=== PATIENT | female | born 2000 | race African-American/Black ===

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

== ENCOUNTER 2018-05-13 06:20 | Outpatient (CLI) | payer OTHER ==
--- NOTE | 2018-05-13 10:06 | Non Stress Test Report ---
Non Stress Test Datetime Report Generated by CPN: 05/13/2018 10:06 INDICATION Indication for Study: Other Indication for Study (NST) Other: LABOR CHECK MONITORING Monitor Explained: Monitor Explained; Test Explained; Patient Verbalized Understanding Time on Monitor: 05/13/2018 06:42 Time off Monitor: 05/13/2018 07:48 NST Duration: 66 NST INTERVENTIONS NST Interventions: PO Hydration; Reposition Patient Physician Notified NST: Dr Alexandro BABY A: [id number] BABY A Movement : Present Contraction Frequency : IRREG WITH IRRITABILITY FHR Baseline : 135 Accelerations : 15X15 Decelerations : None Variability : Moderate 6-25bpm NST Review: Meets Criteria for Reactive NST NST Review and Verified By : D Bellavance RN NST Results: Reactive NST REPORT Report Trigger: Send Report
== END 2018-05-13 09:50 | disposition home or self-care (01) ==
LOC: LC 06:20
PROVIDERS: ATTEND Student in an Organized Health Care Education/Training Program
PROC: 4A1HXCZ Monitoring of Products of Conception, Cardiac Rate, External Approach (ICD-10-PCS; principal; 2018-05-13)
DX: O47.1 False labor at or after 37 completed weeks of gestation (principal); Z3A.39 39 weeks gestation of pregnancy

== ENCOUNTER 2018-05-20 16:00 | Outpatient (CLI) | payer OTHER ==
[2018-05-20 16:41] LABS: AMNISURE (ROM) NEGATIVE (NEGATIVE)
--- NOTE | 2018-05-20 17:06 | Non Stress Test Report ---
Non Stress Test Datetime Report Generated by CPN: 05/20/2018 17:06 DEMOGRAPHIC Test Number: 1 EGA NST: 40.1 INDICATION Indication for Study: Ordered by Provider Indication for Study (NST) Other: LC MONITORING Monitor Explained: Monitor Explained; Test Explained; Patient Verbalized Understanding Time on Monitor: 05/20/2018 16:24 Time off Monitor: 05/20/2018 17:05 NST Duration: 41 NST INTERVENTIONS NST Interventions: PO Hydration Physician Notified NST: Alexandro BABY A: [id number] BABY A Movement : Present Contraction Frequency : Irregular FHR Baseline : 135 Accelerations : 15X15 Decelerations : None Variability : Moderate 6-25bpm NST Review: Meets Criteria for Reactive NST NST Review and Verified By : D Bellavance RN NST Results: Reactive NST REPORT Report Trigger: Send Report
[2018-05-20 17:39] LABS: APPEARANCE,URINE CLEAR; BILIRUBIN,URINE NEGATIVE (NEGATIVE); COLOR,URINE STRAW; GLUCOSE, URINE NEGATIVE (NEGATIVE); KETONES,URINE NEGATIVE (NEGATIVE); LEUKOCYTE ESTERASE,URINE NEGATIVE (NEGATIVE); NITRITE,URINE NEGATIVE (NEGATIVE); PROTEIN,URINE NEGATIVE (NEGATIVE); URINE SPECIFIC GRAVITY 1.003; UROBILINOGEN,URINE NEGATIVE mg/dL (<2.0)
[2018-05-20 17:57] LABS: URINE AMPHETAMINES SCREEN NEGATIVE; URINE BARBITURATES SCREEN NEGATIVE; URINE BENZODIAZEPINES SCREEN NEGATIVE; URINE COCAINE SCREEN NEGATIVE; URINE MARIJUANA (THC) SCREEN NEGATIVE; URINE METHADONE SCREEN NEGATIVE; URINE PHENCYCLIDINE SCREEN NEGATIVE
== END 2018-05-20 17:25 | disposition home or self-care (01) ==
LOC: LC 16:00
PROVIDERS: ATTEND Obstetrics & Gynecology
PROC: 4A1HXCZ Monitoring of Products of Conception, Cardiac Rate, External Approach (ICD-10-PCS; principal; 2018-05-20)
DX: O48.0 Post-term pregnancy (principal); Z3A.40 40 weeks gestation of pregnancy
CPT/HCPCS: 59025; 80307; 81005; 84112

== ENCOUNTER 2018-05-22 16:50 | Outpatient (CLI) | payer OTHER ==
--- NOTE | 2018-05-22 21:54 | RADIOLOGY REPORT (SQ) ---
EXAM DESCRIPTION: U/S PROFILE W/O STRESS COMPLETED DATE/TIME: 05/22/2018 8:14 pm REASON FOR STUDY: possible heart rate decel in office, 40+3 COMPARISON: None. TECHNIQUE: Limited calhoun-scale realtime and static images of the fetus to measure specified parameter s. LIMITATIONS: None. FINDINGS: HEART RATE: 147 beats per minute. JAVIER: 5.4 cm. BREATHING MOVEMENT: 2 points. MOVEMENT: 2 points. POSTURE AND TONE: 2 points. QUALITATIVE JAVIER: 2 points. OTHER: Cephalic presentation. IMPRESSION: BIOPHYSICAL PROFILE: 05/21. Trimester of : Third - 28 weeks to delivery COMMENT: BREATHING MOVEMENTS: 2 POINTS: PRESENT 0 POINTS: ABSENT MOTION: 2 POINTS: PRESENT 0 POINTS: ABSENT TONE: 2 POINTS: PRESENT 0 POINTS: ABSENT AMNIOTIC FLUID VOLUME: 2 POINTS: LARGEST POCKET GREATER THAN 2 CM DEPTH. 0 POINTS: NO POCKET OF 2 CM. TECHNICAL DOCUMENTATION: JOB ID: [id number] [employer]- All Rights Reserved Reading location - IP/workstation name: [email or web address]
--- NOTE | 2018-05-22 22:36 | Non Stress Test Report ---
Non Stress Test Datetime Report Generated by CPN: 05/22/2018 22:35 DEMOGRAPHIC Test Number: 4 EGA NST: 40.3 INDICATION Indication for Study: Ordered by Provider Indication for Study (NST) Other: Questionable strip in office. VITAL SIGNS Temperature - NST: 98.6 MONITORING Monitor Explained: Monitor Explained; Test Explained; Patient Verbalized Understanding Time on Monitor: 05/22/2018 16:59 Time off Monitor: 05/22/2018 22:18 NST Duration: 319 NST INTERVENTIONS NST Interventions: PO Hydration; Reposition Patient Physician Notified NST: Dr. Rodriguez BABY A: [id number] BABY A Movement : Present Contraction Frequency : irregular FHR Baseline : 135 Decelerations : None Variability : Moderate 6-25bpm NST Review: Meets Criteria for Reactive NST NST Review and Verified By : Hudson Palma RNC NST Results: Reactive NST REPORT Report Trigger: Send Report
== END 2018-05-22 22:24 | disposition home or self-care (01) ==
LOC: LC 16:50
PROVIDERS: ATTEND Student in an Organized Health Care Education/Training Program
PROC: 4A1HXCZ Monitoring of Products of Conception, Cardiac Rate, External Approach (ICD-10-PCS; principal; 2018-05-22)
DX: O47.1 False labor at or after 37 completed weeks of gestation (principal); Z3A.40 40 weeks gestation of pregnancy
CPT/HCPCS: 59025; 76819

== ENCOUNTER 2018-05-26 12:33 | Outpatient (CLI) | payer OTHER ==
--- NOTE | 2018-05-27 01:58 | Non Stress Test Report ---
Non Stress Test Datetime Report Generated by CPN: 05/27/2018 01:57 DEMOGRAPHIC EGA NST: 41.0 INDICATION Indication for Study: Ordered by Provider MONITORING Monitor Explained: Monitor Explained; Test Explained; Patient Verbalized Understanding Time on Monitor: 05/26/2018 12:45 Time off Monitor: 05/26/2018 13:27 NST Duration: 42 NST INTERVENTIONS NST Interventions: PO Hydration; Reposition Patient Physician Notified NST: Chema Fenton, CNM BABY A: [id number] BABY A Movement : Present Contraction Frequency : 0 FHR Baseline : 130 Accelerations : 15X15 Decelerations : None Variability : Moderate 6-25bpm NST Review: Meets Criteria for Reactive NST NST Review and Verified By : Bernice Bell RN NST Results: Reactive NST REPORT Report Trigger: Send Report
== END 2018-05-26 13:31 | disposition home or self-care (01) ==
LOC: LC 12:33
PROVIDERS: ATTEND Student in an Organized Health Care Education/Training Program
PROC: 4A1HXCZ Monitoring of Products of Conception, Cardiac Rate, External Approach (ICD-10-PCS; principal; 2018-05-26)
DX: Z34.93 Encounter for supervision of normal pregnancy, unspecified, third trimester (principal)
CPT/HCPCS: 59025

== ENCOUNTER 2018-05-27 02:26 | Inpatient (IN) | payer OTHER ==
[2018-05-27] MEDS ORDERED: DINOPROSTONE 10 MG VAGINAL INSERT.SR PV PRN (03:12)
[2018-05-27] MEDS ORDERED: RINGERS SOLUTION,LACTATED 300 ML IV ONE (03:12)
[2018-05-27 03:38] LABS: ABSOLUTE EOSINOPHILS # (AUTO) 0.1 10^3/uL (0.0-0.6); ABSOLUTE LYMPHOCYTES (AUTO) 3.2 10^3/uL (0.5-4.7); ABSOLUTE MONOCYTES (AUTO) 0.6 10^3/uL (0.1-1.4); ABSOLUTE NEUT (AUTO) 7.5 10^3/uL (1.7-8.2); BASOPHILS % (AUTO) 0.3 % (0-2); EOSINOPHILS % (AUTO) 0.9 % (0-6); HEMATOCRIT 38.9 % (36.0-47.0); HEMOGLOBIN 13.2 g/dL (12.0-15.5); LYMPHOCYTES % (AUTO) 27.8 % (13-45); MEAN CORPUSCULAR HEMOGLOBIN 29.9 pg (27.0-33.4); MEAN CORPUSCULAR VOLUME 88 fl (80-97); MONOCYTES % (AUTO) 5.7 % (3-13); PLATELET COUNT 410 10^3/uL (150-450); RED BLOOD COUNT 4.41 10^6/uL (3.72-5.28); RED CELL DISTRIBUTION WIDTH 14.2 % (11.5-14.0); SEGMENTED NEUTROPHILS % (AUTO) 65.3 % (42-78); TOTAL CELLS COUNTED % (AUTO) 100 %; WHITE BLOOD COUNT 11.4 10^3/uL (4.0-10.5)
[2018-05-27 03:53] LABS: APPEARANCE,URINE CLOUDY; BILIRUBIN,URINE NEGATIVE (NEGATIVE); COLOR,URINE YELLOW; GLUCOSE, URINE NEGATIVE (NEGATIVE); KETONES,URINE NEGATIVE (NEGATIVE); LEUKOCYTE ESTERASE,URINE NEGATIVE (NEGATIVE); NITRITE,URINE NEGATIVE (NEGATIVE); PROTEIN,URINE NEGATIVE (NEGATIVE); URINE SPECIFIC GRAVITY 1.013; UROBILINOGEN,URINE NEGATIVE mg/dL (<2.0)
[2018-05-27] MEDS ORDERED: DINOPROSTONE 10 MG VAGINAL INSERT.SR ONE (04:16)
[2018-05-27] MEDS: RINGERS SOLUTION,LACTATED 1,000 ML IV PRN ×3 (04:31→14:22)
[2018-05-27] MEDS ORDERED: ONDANSETRON HCL INJ/PF 4 MG/2 ML SDV ONE (05:03)
[2018-05-27 05:15] LABS: URINE AMPHETAMINES SCREEN NEGATIVE; URINE BARBITURATES SCREEN NEGATIVE; URINE BENZODIAZEPINES SCREEN NEGATIVE; URINE COCAINE SCREEN NEGATIVE; URINE MARIJUANA (THC) SCREEN NEGATIVE; URINE METHADONE SCREEN NEGATIVE; URINE PHENCYCLIDINE SCREEN NEGATIVE
[2018-05-27] MEDS ORDERED: ONDANSETRON HCL INJ/PF 4 MG/2 ML SDV IV ONE (05:35)
[2018-05-27] MEDS ORDERED: HYDROXYZINE PAMOATE 50 MG CAPSULE PO ONE (05:35)
[2018-05-27] MEDS ORDERED: HYDROXYZINE PAMOATE 50 MG CAPSULE ONE (05:46)
[2018-05-27] MEDS ORDERED: PENICILLIN G-K 5 MILLION UNIT VIAL ONE ×3 (05:46→16:18)
[2018-05-27] MEDS ORDERED: PENICILLIN G POTASSIUM 5,000,000 UNIT in DEXTROSE 5%-WATER 100 ML IV ONE ×2 (06:01→15:00)
--- NOTE | 2018-05-27 07:16 | Admission Physical ---
Datetime Report Generated by CPN: 05/27/2018 07:15 CURRENT ADMISSION Chief Complaint: Scheduled Induction of Labor Indication for Induction: Postterm Admit Impression : Term, Intrauterine ; No Active Labor; Intact Membranes Admit Plan: Admit to Unit; Initiate Labor Induction Protocol ALLERGIES Medication Allergies: No Medication Allergies: No Known Allergies (05/13/2018) Latex: No Latex Allergies Food Allergies: N/A Environmental Allergies: N/A OBSTETRICAL HISTORY EDC: 05/19/2018 00:00 : 1 Para: 0 Term: 0 : 0 SAB: 0 IAB: 0 Ectopic: 0 Livin Cesareans: 0 VBACs: 0 Multiple Births: 0 Gestational Diabetes: No Rh Sensitization: No Incompetent Cervix: No SANDY: No Infertility: No ART Treatment: No Uterine Anomaly: No IUGR: No Hx Previous C/S: No Macrosomia: No Hx Loss/Stillborn: No PIH: No Hx : No Placenta Previa/Abruption: No Depression/PP Depression: No PTL/PROM: No Post Hemorrhage: No Current Procedures: Ultrasound; NST Obstetrical History Comments: G1 current SEE RECORDS Alcohol: No Marijuana : No Cocaine: No Other Illicit Drugs: No Cigarettes: Never Smoker. 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 Surgery: No Heart Disease: No Hosp/Surgery: No Autoimmune Disorder: No Anesthetic Complications: No Kidney Disease: No Abnormal Pap Smear: No Neuro/Epilepsy: No Psychiatric Disorders: No Other Medical Diseases: No Hepatitis/Liver Disease: No Significant Family History: No Varicosities/Phlebitis: No Trauma/Violence : No Thyroid Dysfunction: No INFECTIOUS HISTORY Gonorrhea: No Genital Herpes: No Chlamydia: No Tuberculosis: No Syphilis: No Hepatitis: No HIV/AIDS Exposure: No Rash or Viral Illness: No HPV: No PHYSICAL EXAM General: Normal HEENT: Normal Neurologic: Normal Thyroid: Deferred Heart: Normal Lungs: Normal Breast: Deferred Back: Normal Abdomen: Normal Genitourinary Exam: Normal Extremities: Normal DTRs: Normal Pelvic Type: Adequate Vital Signs: Reviewed VAGINAL EXAM Dilatation: 2 Effacement: 75 Station: -2 Contraction Comments: irreg FETUS A EGA: 41.1 Monitoring: External US FHR- Baseline: 125 Variability: Moderate 6-25bpm Accelerations: 15X15 Decelerations: None FHR Category: Category I Presentation: Vertex Admit Comment: 17yo at 41+1ega presents for IOL due to post AMADO. 5 minute deceleration upon placement on the monitor with resolution. Once recovered and stable FHR then cervidil was placed due to need for IOL. GBS pos - PCN for prophylaxis. Anticipate . IOL with cervidil and then pitocin titrate to adequate contractions. PLANS FOR LABOR AND DELIVERY Labor and Delivery: None Pain Management: Epidural Feeding Preference: Breast Benefit of Breast Feed Discussed: Yes Circumcision: Yes INFORMED CONSENT Informed Consent Obtained: Vaginal Delivery; Induction of Labor; Risks, Benefits and Alternatives Discussed Signature: with User ID: [email or web address]
[2018-05-27] MEDS ORDERED: PENICILLIN G POTASSIUM 2,500,000 UNIT in DEXTROSE 5%-WATER 50 ML IV SCH ×2 (10:00→19:00)
[2018-05-27] MEDS ORDERED: FENTANYL CITRATE INJ/PF 100 MCG/2 ML AMPUL ONE (10:33)
[2018-05-27] MEDS ORDERED: EPHEDRINE SULFATE INJ 50 MG/1 ML AMPULE ONE (10:33)
[2018-05-27] MEDS ORDERED: FENTANYL/BUPIVACAINE/NS/PF 300 MCG/150 ML RTUINJ EPI ONE (10:34)
[2018-05-27] MEDS ORDERED: PHENYLEPHRINE HCL INJ/PF 10 MG/1 ML SDV ONE (10:34)
[2018-05-27] MEDS ORDERED: BUPIVACAINE HCL 0.25 % INJ/PF (2.5 MG/1 ML) 30 ML VIAL ONE (10:34)
[2018-05-27] MEDS ORDERED: MISOPROSTOL 0.2 MG TABLET ONE (10:34)
[2018-05-27] MEDS ORDERED: OXYTOCIN/NORMAL SALINE 20 UNIT/1,000 ML RTUINJ ONE (10:35)
[2018-05-27] MEDS ORDERED: LIDOCAINE 1% INJ-PF (10 MG/ML) 30 ML SDV ONE (10:35)
--- NOTE | 2018-05-27 10:38 | L&D Progress Notes ---
PROGRESS NOTES Datetime Report Generated by CPN: 05/27/2018 10:38 PROGRESS NOTE Impression: Reassuring Heart Rate Impression Other: GBS+ Procedures- Other: cervidil removed due to FHR decel, resolved with position change Plan: Continue Present Management; Induction; Anticipate Vaginal Delivery Plan Other: pt may have an epidural. continue PCN q4hrs until delivery Informed Consent Obtained: Vaginal Delivery Informed Consent Obtained: Vaginal Delivery; Induction of Labor; Risks, Benefits and Alternatives Discussed Vital Signs : Reviewed; Within Normal Limits VAGINAL EXAM Dilatation: 2 Effacement: 75 Station: -2 Contractions: irreg MEMBRANES Membranes: Intact FETUS A Decelerations: Variable FHR Category: Category I Presentation: Vertex SIGNATURE SIGNATURE: ,[id number];,[id number] SIGNATURE: ,[id number];,[id number] SIGNATURE: ,[id number] SIGNATURE: ,[id number] SIGNATURE: ,[id number] SIGNATURE: ,[id number] Assignment: Alana Mc MD Signature: with User ID: [email or web address] : with User ID: [email or web address]
--- NOTE | 2018-05-27 13:47 | L&D Progress Notes ---
PROGRESS NOTES Datetime Report Generated by CPN: 05/27/2018 13:47 PROGRESS NOTE Impression: Normal Progression of Labor Plan: Continue Present Management; Anticipate Vaginal Delivery Vital Signs : Reviewed; Within Normal Limits Comment: Prolonged decel x 10 min, resolved with position changes, Dr Alexandro at bedside to review FHR tracing. Anticipate , PCN q4hrs for GBS+ VAGINAL EXAM Dilatation: anter lip Effacement: 100 Station: -2 MEMBRANES Membranes: Ruptured Amniotic Fluid Color: Clear FETUS A Variability: Moderate 6-25bpm Decelerations: Prolonged FHR Category: Category II FHR Comments: FHR down to 90-100 x 10 min, O2 applied, IVF bolus, position changes made. Dr Mc in room to evaluate. FETUS C SIGNATURE: [id number];[id number];[id number] Assignment: Alana Mc MD Signature: with User ID: [email or web address] : with User ID: [email or web address]
[2018-05-27] MEDS ORDERED: ACETAMINOPHEN 1,000 MG/100 ML RTUPB IV ONE (16:18)
[2018-05-27] MEDS ORDERED: PSEUDOEPHEDRINE HCL 30 MG TABLET PO PRN (16:56)
[2018-05-27] MEDS ORDERED: ZOLPIDEM TARTRATE 5 MG TABLET PO PRN (16:56)
[2018-05-27] MEDS ORDERED: DIPHENHYDRAMINE HCL 25 MG CAPSULE PO PRN (16:56)
[2018-05-27] MEDS ORDERED: DIPH/PERTUSS(ACELL)/TETANUS VAC/PF 0.5 ML SYR (>=10YO) IM PRN (16:56)
[2018-05-27] MEDS ORDERED: MAGNESIUM HYDROXIDE SUSP 30 ML UDCUP PO PRN (16:56)
[2018-05-27] MEDS ORDERED: BENZOCAINE/MENTHOL AEROSOL SPRAY 56 ML TOP PRN (16:56)
[2018-05-27] MEDS ORDERED: NA PHOS,M-B/NA PHOS,DI-BA (ADULT) 133 ML ENEMA PR PRN (16:56)
[2018-05-27] MEDS ORDERED: PROMETHAZINE HCL 25 MG SUPP.RECT PR PRN (16:56)
[2018-05-27] MEDS ORDERED: OXYTOCIN/NORMAL SALINE 20 UNIT/1,000 ML RTUINJ IV PRN (16:56)
[2018-05-27] MEDS ORDERED: PROMETHAZINE HCL 25 MG TABLET PO PRN (16:56)
[2018-05-27] MEDS ORDERED: ACETAMINOPHEN 650 MG SUPP.RECT PR PRN (16:56)
[2018-05-27] MEDS ORDERED: PROMETHAZINE HCL INJ 25 MG/1 ML VIAL IV PRN (16:56)
[2018-05-27] MEDS ORDERED: MEASLES,MUMPS&RUBELLA VACC/PF 0.5 ML VIAL SUBCUT PRN (16:56)
[2018-05-27] MEDS ORDERED: ACETAMINOPHEN WITH CODEINE #3 TABLET PO PRN ×2 (16:56)
[2018-05-27] MEDS ORDERED: GLYCERIN/WITCH HAZEL LEAF 1 EACH MED..PAD TP PRN (16:56)
[2018-05-27] MEDS ORDERED: DIBUCAINE 1% OINTMENT 28 GM TP PRN (16:56)
--- NOTE | 2018-05-27 18:27 | Delivery Summary ---
Del Sum A-C Datetime Report Generated by CPN: 05/27/2018 18:27 DELIVERY PERSONNEL DELIVERY PERSONNEL: [id number] Delivery Doctor:: Alana Mc MD Labor and Delivery Nurse:: Natasha Boss RNsugar cane planting equipment operator Nurse:: ARNULFO Beltre Nursery Nurse:: Eduardo Betancur RN Nursery Nurse:: Celine Camejo RN Accredited Pharmacy Technician/BREAKER LAYER: [facility], ST MATERNAL INFORMATION Delivery Anesthesia: Epidural Medications After Delivery: Pitocin Drip 20 Units/1000ml NSS Estimated Blood Loss (ml): 300 Maternal Complications: Chorioamnionitis; Maternal Fever LABOR SUMMARY EDC: 05/19/2018 00:00 No. Babies in Womb: 1 Attempted: No Labor Anesthesia: None LABOR INFORMATION Reason for Induction: Post Dates Onset of Labor: 05/27/2018 10:00 Complete Dilatation: 05/27/2018 14:26 Cervical Ripening Agents: Cervidil Oxytocin: Induction Group B Beta Strep: POSITIVE Antibiotics # of Doses: 3 Antibiotics Time of Last Dose: 1621 Reason Steroids Not Administered: Imminent Delivery MEMBRANES Membranes Rupture Method: Artificial Rupture of Membranes: 05/27/2018 11:47 Length of Rupture (hr): 4.72 Amniotic Fluid Color: Heavy Meconium Amniotic Fluid Amount: Scant Amniotic Fluid Odor: Normal STAGES OF LABOR Stage 1 hr: 4 Stage 1 min: 26 Stage 2 hr: 2 Stage 2 min: 4 Stage 3 hr: 0 Stage 3 min: 3 Total Time in Labor hr: 6 Total Time in Labor min: 33 VAGINAL DELIVERY Episiotomy: None Laceration #1: Perineal; Vaginal Laceration Extension #1: Second Degree Laceration Repair: Yes Laceration Repair Note: 2-0 chromic in normal fashion Sponge Count Correct: N/A Sharps Count Correct: N/A CSECTION DELIVERY Primary Indication: N/A Secondary Indication: N/A CSection Incidence: N/A Labor: N/A Elective: N/A CSection Incision: N/A BABY A INFORMATION Infant Delivery Date/Time: 05/27/2018 16:30 Method of Delivery: Vaginal Born in Route : No : N/A Forceps: N/A Vacuum Extraction: N/A Shoulder Dystocia : No PRESENTATION/POSITION BABY A Presentation: Cephalic Cephalic Presentation: Vertex Vertex Position: Right Occipital Anterior Breech Presentation: N/A PLACENTA INFORMATION BABY A Placenta Delivery Time : 05/27/2018 16:33 Placenta Method of Delivery: Spontaneous Placenta Status: Delivered SCORES BABY A Heart Rate 1 min: >100 bpm Resp Effort 1 min: Good Cry Reflex Irritability 1 min: Cough or Sneeze or Pulls Away Muscle Tone 1 min: Some Flexion of Extremities Color 1 min: Blue/Pale Resuscitation Effort 1 min: Tactile Stimulation SCORE 1 MIN: 7 Heart Rate 5 min: >100 bpm Resp Effort 5 min: Good Cry Reflex Irritability 5 min: Cough or Sneeze or Pulls Away Muscle Tone 5 min: Some Flexion of Extremities Color 5 min: Body Sickles Corner, Extremities Blue Resuscitation Effort 5 min: Tactile Stimulation SCORE 5 MIN: 8 INFANT INFORMATION BABY A Gestational Age at Delivery: 41.1 Gestational Status: Late Term- 41- 41.6 Weeks Outcome : Liveborn Infant Condition : Stable Sex: Male IDENTIFICATION BABY A Verification Date/Time: 05/27/2018 16:47 ID Band Number: [id number] Mother's Name Verified: Yes Infant RN Verifying Infant: J.Field, RN Additional Verifying Personnel: A.Ashia, BREAKER LAYER WEIGHT/LENGTH BABY A Infant Birthweight (gm): 3755 Weight (lb): 8 Weight (oz): 4 Infant Length (in): 22.00 Length (cm): 55.88 CORD INFORMATION BABY A No. Cord Vessels: 3 Nuchal Cord : Around Neck x1, Loose Cord Blood Taken: Yes-For Eval (Mom's Blood Type - or O+) Suction: Mouth; Nose ASSESSMENT BABY A Infant Complications: Meconium Physical Findings at Delivery: Caput Succedaneum; Molding of the Head Respirations: Appears Normal Skin to Skin: No Care By: Bonita Clark Rn/ Halley Camejo RN Transferred To: Remains with Mother BABY B INFORMATION : N/A SIGNATURES Signature: with User ID: [email or web address]
[2018-05-27] MEDS: DOCUSATE SODIUM 100 MG CAPSULE PO SCH (22:39)
[2018-05-27] MEDS: FERROUS SULFATE 325 MG TABLET PO SCH (22:39)
[2018-05-27] MEDS: IBUPROFEN 800 MG TABLET PO SCH (22:42)
[2018-05-27] MEDS: FAMOTIDINE 20 MG TABLET PO SCH (22:42)
[2018-05-28] MEDS: IBUPROFEN 800 MG TABLET PO SCH ×3 (05:56→21:33)
[2018-05-28 08:01] LABS: HEMATOCRIT 29.6 % (36.0-47.0); MEAN CORPUSCULAR HEMOGLOBIN 30.5 pg (27.0-33.4); MEAN CORPUSCULAR HGB CONC 34.2 g/dL (32.0-36.0); MEAN CORPUSCULAR VOLUME 89 fl (80-97); PLATELET COUNT 282 10^3/uL (150-450); RED BLOOD COUNT 3.33 10^6/uL (3.72-5.28); RED CELL DISTRIBUTION WIDTH 14.3 % (11.5-14.0)
[2018-05-28 08:02] LABS: HEMOGLOBIN 10.1 g/dL (12.0-15.5)
[2018-05-28] MEDS: SENNOSIDES/DOCUSATE 8.6-50 MG 1 EACH TABLET PO SCH (10:29)
[2018-05-28] MEDS: DOCUSATE SODIUM 100 MG CAPSULE PO SCH ×2 (10:29→19:23)
[2018-05-28] MEDS: PRENATAL VITAMIN W DHA CAPSULE PO SCH (10:49)
[2018-05-28] MEDS: FAMOTIDINE 20 MG TABLET PO SCH ×2 (10:49→21:33)
[2018-05-28] MEDS: FERROUS SULFATE 325 MG TABLET PO SCH ×2 (10:49→19:23)
--- NOTE | 2018-05-28 11:05 | PDOC PROGRESS REPORT ---
Subjective-OB Progress Note for:: 05/28/18 Subjective: Pt doing well, no concerns. She reports light bleeding, reg diet and voiding without difficulty. Physical Exam (OB) Vital Signs: Temp Pulse Resp BP Pulse Ox 97.8 F 94 H 22 130/82 H 99 05/28/18 08:21 05/28/18 08:21 05/28/18 08:21 05/28/18 08:21 05/28/18 08:21 Intake & Output 05/27/18 05/28/18 05/29/18 06:59 06:59 06:59 Intake Total 1727 Balance 1727 Weight 110.677 kg - Lochia Lochia Amount: Scant < 10 ml Lochia Color: Rubra/Red - Abdomen Description: Tender, Soft Hernia Present: No Fundal Description: Firm, Midline Fundal Height: u/u - u/2 Objective-Diagnostic Laboratory: 05/28/18 06:50 05/28/18 06:50 WBC 15.0 H RBC 3.33 L Hgb 10.1 L D Hct 29.6 L MCV 89 MCH 30.5 MCHC 34.2 RDW 14.3 H Plt Count 282 Assessment and Plan(PN) - Assessment and Plan (1) Vaginal delivery Is this a current diagnosis for this admission?: Yes - Time Spent with Patient Time with patient: Less than 15 minutes Medications reviewed and adjusted accordingly: Yes - Disposition Anticipated Discharge: Home Within: within 24 hours
[2018-05-29] MEDS: IBUPROFEN 800 MG TABLET PO SCH ×2 (05:42→14:03)
[2018-05-29] MEDS: PRENATAL VITAMIN W DHA CAPSULE PO SCH (09:38)
[2018-05-29] MEDS: FERROUS SULFATE 325 MG TABLET PO SCH ×2 (09:38→18:17)
[2018-05-29] MEDS: SENNOSIDES/DOCUSATE 8.6-50 MG 1 EACH TABLET PO SCH (09:38)
[2018-05-29] MEDS: FAMOTIDINE 20 MG TABLET PO SCH (09:38)
[2018-05-29] MEDS: DOCUSATE SODIUM 100 MG CAPSULE PO SCH ×2 (09:38→18:17)
--- NOTE | 2018-05-29 11:19 | PDOC PROGRESS REPORT ---
Subjective-OB Progress Note for:: 05/29/18 Subjective: Doing well, no c/o, , eating and voiding well Physical Exam (OB) Vital Signs: Temp Pulse Resp BP Pulse Ox 97.8 F 78 22 128/67 H 100 05/29/18 07:49 05/29/18 07:49 05/29/18 07:49 05/29/18 07:49 05/29/18 07:49 Intake & Output 05/28/18 05/29/18 05/30/18 06:59 06:59 06:59 Intake Total 1727 500 Output Total 3 Balance 1727 497 - PIH/Pre-Eclampsia Headache: Absent Epigastric Pain: No Visual Changes: No - Lochia Lochia Amount: Small 10-25 ml Lochia Color: Rubra/Red - Abdomen Description: Tender, Soft, Round Hernia Present: No Fundal Description: Firm, Midline Fundal Height: u/u - u/2 Objective-Diagnostic Laboratory: 05/28/18 06:50 Assessment and Plan(PN) - Assessment and Plan (1) GBS (group B Streptococcus carrier), +RV culture, currently Is this a current diagnosis for this admission?: Yes (2) Vaginal delivery Is this a current diagnosis for this admission?: Yes (3) Post-term Is this a current diagnosis for this admission?: Yes - Time Spent with Patient Time with patient: Less than 15 minutes Medications reviewed and adjusted accordingly: Yes - Disposition Anticipated Discharge: Home Within: Other - home today
--- NOTE | 2018-05-29 11:22 | PDOC DISCHARGE SUMMARY ---
Final Diagnosis Discharge Date: 05/29/18 - Final Diagnosis (1) GBS (group B Streptococcus carrier), +RV culture, currently Is this a current diagnosis for this admission?: Yes (2) Vaginal delivery Is this a current diagnosis for this admission?: Yes (3) Post-term Is this a current diagnosis for this admission?: Yes Discharge Data - Discharge Medication Home Medications: Vit/Iron Fum/Folic AC [ Tablet] 1 tab PO DAILY 05/13/18 Gestational Age: 41.1 Reason(s) for Admission: Induction of Labor, Group B Strep Positive Procedures: NST, Ultrasound Intrapartum Procedure(s): Spontaneous Vaginal Delivery Complication(s): Laceration-Vaginal Laceration-Degree: 2nd - Data Baby 1 Male at 1 minute: 7 at 5 minutes: 8 Weight: 3.742 kg Home with Mother: Yes Complications: No - Diagnosis Test Laboratory: Temp Pulse Resp BP Pulse Ox 97.8 F 78 22 128/67 H 100 05/29/18 07:49 05/29/18 07:49 05/29/18 07:49 05/29/18 07:49 05/29/18 07:49 05/27/18 05/27/18 05/28/18 02:36 02:56 06:50 RBC 4.41 3.33 L Hgb 13.2 10.1 L D Hct 38.9 29.6 L Urine Opiates Screen NEGATIVE - Discharge information/Instructions Discharge Activity: Activity As Tolerated, No Lifting Over 10 Pounds, No Lifting /Push/Pulling, Pelvic Rest Discharge Diet: As Tolerated, Regular Disposition: HOME, SELF-CARE Follow up with: [facility] in: 3, Weeks
[2018-05-29 21:02] VITALS: BP 129/75
== END 2018-05-29 21:49 | disposition home or self-care (01) | DRG 775 ==
LOC: LR 02:26 → 2S 18:53
PROVIDERS: ADMIT Obstetrics & Gynecology; ATTEND Obstetrics & Gynecology
PROC: 10E0XZZ Delivery of Products of Conception, External Approach (ICD-10-PCS; principal; 2018-05-27)
DX: O48.0 Post-term pregnancy (principal); O41.1230 Chorioamnionitis, third trimester, not applicable or unspecified; Z3A.41 41 weeks gestation of pregnancy; O76 Abnormality in fetal heart rate and rhythm complicating labor and delivery; O99.824 Streptococcus B carrier state complicating childbirth; O77.0 Labor and delivery complicated by meconium in amniotic fluid; O70.1 Second degree perineal laceration during delivery; O69.81X0 Labor and delivery complicated by cord around neck, without compression, not applicable or unspecified; Z37.0 Single live birth
CPT/HCPCS: 36415; 80307; 81005; 85025; 85027; 86592; 86850; 86900; 86901; J0131; J2370; J2405; J2540; J2590; J3010; J3490

== ENCOUNTER 2019-07-15 11:46 | Emergency (ER) | payer OTHER ==
[2019-07-15 12:09] VITALS: BP 130/70
--- NOTE | 2019-07-15 12:29 | ER Document Report ---
HPI - HPI Patient complains to provider of: Sore throat and cough Time Seen by Provider: 07/15/19 11:58 Onset: Other Quality of pain: Achy Context: 19-year-old female presents emergency department with complaints of cough for couple weeks and sore throat that started this a.m. Denies fever vomiting diarrhea. Reports she took TheraFlu and did help her feel little bit better. Is unsure if she is been around anybody with strep. Associated Symptoms: Nonproductive cough, Sore throat Exacerbated by: Denies Relieved by: Denies Similar symptoms previously: No Recently seen / treated by doctor: No - REPRODUCTIVE Reproductive: REPORTS: : Past Medical History - General Information source: Patient Last Menstrual Period: June 27, 2019 - Social History Smoking Status: Unknown if Ever Smoked Cigarette use (# per day): No Frequency of alcohol use: Occasional Drug Abuse: None Lives with: Family Family History: Reviewed & Not Pertinent Patient has suicidal ideation: No Patient has homicidal ideation: No - Medical History Medical History: Negative Renal/ Medical History: Reports: Hx Peritoneal Dialysis Surgical Hx: Negative Vertical Provider Document - CONSTITUTIONAL Agree With Documented VS: Yes Exam Limitations: No Limitations General Appearance: WD/WN, No Apparent Distress - INFECTION CONTROL TRAVEL OUTSIDE OF THE [place] IN LAST 30 DAYS: No - HEENT HEENT: Atraumatic, Normocephalic, Pharyngeal Erythema. negative: Conjuctival Injection, Pharyngeal Exudate - NECK Neck: Normal Inspection, Supple. negative: Lymphadenopathy-Left, Lymphadenopathy-Right - RESPIRATORY Respiratory: Breath Sounds Normal, No Respiratory Distress. negative: Rhonchi, Wheezing - CARDIOVASCULAR Cardiovascular: Regular Rate, Regular Rhythm - GI/ABDOMEN Gastrointestinal: Abdomen Soft, Abdomen Non-Tender - MUSCULOSKELETAL/EXTREMETIES Musculoskeletal/Extremeties: MAEW, FROM - NEURO Level of Consciousness: Awake, Alert, Appropriate Motor/Sensory: No Motor Deficit - DERM Integumentary: Warm, Dry, No Rash Course - Re-evaluation Re-evalutation: 07/15/19 12:27 19-year-old female presents with complaints of sore throat that started this morning and a cough for the last couple weeks. Denies fever vomiting diarrhea. Denies past medical history. Patient looks good nontoxic occasional cough noted. 07/15/19 12:30 Strep test was negative. Patient was instructed on this instructed dad on throat culture pending. Instructed to monitor for fever take Tylenol Motrin as indicated. She verbalized understand all instructions Dictation of this chart was performed using voice recognition software; therefore, there may be some unintended grammatical errors. - Vital Signs Vital signs: Temp Pulse Resp BP Pulse Ox 98.9 F 98 16 130/70 H 98 07/15/19 12:01 07/15/19 12:01 07/15/19 12:01 07/15/19 12:01 07/15/19 12:01 Discharge - Discharge Clinical Impression: Sore throat, Cough Condition: Stable Disposition: HOME, SELF-CARE Instructions: Sore Throat ([facility]) Additional Instructions: *You have been evaluated for a sore throat, cough Your strep test was negative. A throat culture is pending. Should you need antibiotics you will be contacted in 2 to 3 days. *In the meantime gargle with warm salt water and take throat lozenges for comfort Monitor your temperature take Tylenol Motrin as indicated *Good hand washing *Follow-up with a primary care provider within 1 week for recheck *Return to ED for worsening condition change, needs
== END 2019-07-15 12:36 | disposition home or self-care (01) ==
LOC: ER 11:46
DX: O99.511 Diseases of the respiratory system complicating pregnancy, first trimester (principal); J02.9 Acute pharyngitis, unspecified; O26.891 Other specified pregnancy related conditions, first trimester; R05 Cough; Z3A.01 Less than 8 weeks gestation of pregnancy
CPT/HCPCS: 87070; 87880; 99283

== ENCOUNTER 2020-06-30 21:38 | Emergency (ER) | payer OTHER ==
[2020-06-30 21:47] VITALS: BP 135/76
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
== END 2020-06-30 23:00 | disposition admitted as inpatient to this hospital (09) ==
LOC: ER 21:38
DX: Z53.20 Procedure and treatment not carried out because of patient's decision for unspecified reasons (principal); M54.2 Cervicalgia; M54.9 Dorsalgia, unspecified; Z3A.27 27 weeks gestation of pregnancy

== ENCOUNTER 2020-06-30 22:54 | Outpatient (CLI) | payer OTHER ==
[2020-06-30 23:43] LABS: AMORPHOUS SEDIMENT,URINE TRACE /HPF; APPEARANCE,URINE CLOUDY; BILIRUBIN,URINE NEGATIVE (NEGATIVE); COLOR,URINE YELLOW; GLUCOSE, URINE NEGATIVE (NEGATIVE); KETONES,URINE NEGATIVE (NEGATIVE); LEUKOCYTE ESTERASE,URINE SMALL (NEGATIVE); NITRITE,URINE NEGATIVE (NEGATIVE); PROTEIN,URINE 30 mg/dL (NEGATIVE); URINE SPECIFIC GRAVITY 1.015; UROBILINOGEN,URINE NEGATIVE mg/dL (<2.0)
[2020-06-30 23:55] LABS: URINE AMPHETAMINES SCREEN NEGATIVE; URINE BARBITURATES SCREEN NEGATIVE; URINE BENZODIAZEPINES SCREEN NEGATIVE; URINE COCAINE SCREEN NEGATIVE; URINE MARIJUANA (THC) SCREEN NEGATIVE; URINE METHADONE SCREEN NEGATIVE; URINE PHENCYCLIDINE SCREEN NEGATIVE
--- NOTE | 2020-07-01 00:34 | RADIOLOGY REPORT (SQ) ---
EXAM DESCRIPTION: US LIMITED COMPLETED DATE/TME: 06/30/2020 00:00 CLINICAL HISTORY: 19 years, Female, and placenta well being COMPARISON: None. TECHNIQUE: Limited OB ultrasound LIMITATIONS: None. FINDINGS: Single, live intrauterine gestation in the cephalic presentation. Cervical length 3.2 cm. Amniotic fluid index 25.9 cm. The placenta is anterior in location with a grade 1 echotexture. heart tones 143 bpm. A detailed anatomic assessment was not performed at this time. Clinical age 27 weeks 1 day. IMPRESSION: Amniotic fluid index measured at 25.9 cm, worrisome for polyhydramnios. However, nonemergent obstetric follow-up is recommended. Single live IUP in the cephalic presentation copyright 2011 [employer]- All Rights Reserved
== END 2020-07-01 01:00 | disposition home or self-care (01) ==
LOC: LC 22:54
PROVIDERS: ATTEND Obstetrics & Gynecology Gynecology
DX: O40.2XX0 Polyhydramnios, second trimester, not applicable or unspecified (principal); O9A.212 Injury, poisoning and certain other consequences of external causes complicating pregnancy, second trimester; T14.90XA Injury, unspecified, initial encounter; W19.XXXA Unspecified fall, initial encounter; Z3A.27 27 weeks gestation of pregnancy
CPT/HCPCS: 76815; 80307; 81001

== ENCOUNTER 2020-07-06 15:23 | Outpatient (CLI) | payer OTHER ==
[2020-07-06 16:23] LABS: AMORPHOUS SEDIMENT,URINE TRACE /HPF; APPEARANCE,URINE CLOUDY; BILIRUBIN,URINE NEGATIVE (NEGATIVE); COLOR,URINE YELLOW; GLUCOSE, URINE NEGATIVE (NEGATIVE); KETONES,URINE NEGATIVE (NEGATIVE); LEUKOCYTE ESTERASE,URINE LARGE (NEGATIVE); NITRITE,URINE NEGATIVE (NEGATIVE); PROTEIN,URINE NEGATIVE (NEGATIVE); URINE SPECIFIC GRAVITY 1.004; UROBILINOGEN,URINE NEGATIVE mg/dL (<2.0)
[2020-07-06 16:36] LABS: URINE AMPHETAMINES SCREEN NEGATIVE; URINE BARBITURATES SCREEN NEGATIVE; URINE BENZODIAZEPINES SCREEN NEGATIVE; URINE COCAINE SCREEN NEGATIVE; URINE MARIJUANA (THC) SCREEN NEGATIVE; URINE METHADONE SCREEN NEGATIVE; URINE PHENCYCLIDINE SCREEN NEGATIVE
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
[2020-07-06] MEDS ORDERED: ACETAMINOPHEN 325 MG TABLET PO ONE (17:30)
== END 2020-07-06 17:44 | disposition home or self-care (01) ==
LOC: LC 15:23
PROVIDERS: ATTEND Obstetrics & Gynecology
DX: O26.892 Other specified pregnancy related conditions, second trimester (principal); M54.9 Dorsalgia, unspecified; Z3A.27 27 weeks gestation of pregnancy
CPT/HCPCS: 76815; 80307; 81001

== ENCOUNTER 2020-09-27 06:32 | Inpatient (IN) | payer OTHER ==
[2020-09-27] MEDS ORDERED: OXYTOCIN/0.9 % SODIUM CHLORIDE 30 UNIT/500 ML RTUINJ IV PRN (06:41)
[2020-09-27] MEDS ORDERED: RINGERS SOLUTION,LACTATED 1,000 ML IV ONE (06:48)
[2020-09-27] MEDS ORDERED: PENICILLIN G POTASSIUM 5,000,000 UNIT in DEXTROSE 5%-WATER 100 ML IV ONE (06:48)
[2020-09-27] MEDS ORDERED: RINGERS SOLUTION,LACTATED 1,000 ML IV PRN (06:48)
[2020-09-27 07:30] LABS: HEMATOCRIT 34.4 % (36.0-47.0); HEMOGLOBIN 11.6 g/dL (12.0-15.5); MEAN CORPUSCULAR HEMOGLOBIN 28.5 pg (27.0-33.4); MEAN CORPUSCULAR HGB CONC 33.7 g/dL (32.0-36.0); MEAN CORPUSCULAR VOLUME 85 fl (80-97); PLATELET COUNT 307 10^3/uL (150-450); RED BLOOD COUNT 4.06 10^6/uL (3.72-5.28); RED CELL DISTRIBUTION WIDTH 14.2 % (11.5-14.0); WHITE BLOOD COUNT 9.7 10^3/uL (4.0-10.5)
[2020-09-27 07:38] LABS: APPEARANCE,URINE CLEAR; BILIRUBIN,URINE NEGATIVE (NEGATIVE); COLOR,URINE YELLOW; GLUCOSE, URINE NEGATIVE (NEGATIVE); KETONES,URINE NEGATIVE (NEGATIVE); LEUKOCYTE ESTERASE,URINE NEGATIVE (NEGATIVE); NITRITE,URINE NEGATIVE (NEGATIVE); PROTEIN,URINE NEGATIVE (NEGATIVE); URINE SPECIFIC GRAVITY 1.008; UROBILINOGEN,URINE NEGATIVE mg/dL (<2.0)
[2020-09-27] MEDS ORDERED: DINOPROSTONE 10 MG VAGINAL INSERT.SR ONE (08:10)
[2020-09-27] MEDS ORDERED: DINOPROSTONE 10 MG VAGINAL INSERT.SR PV ONE (08:15)
[2020-09-27 08:50] LABS: URINE AMPHETAMINES SCREEN NEGATIVE; URINE BARBITURATES SCREEN NEGATIVE; URINE BENZODIAZEPINES SCREEN NEGATIVE; URINE COCAINE SCREEN NEGATIVE; URINE MARIJUANA (THC) SCREEN NEGATIVE; URINE METHADONE SCREEN NEGATIVE; URINE PHENCYCLIDINE SCREEN NEGATIVE
--- NOTE | 2020-09-27 08:58 | Admission Physical ---
Datetime Report Generated by CPN: 09/27/2020 08:57 CURRENT ADMISSION Indication for Induction- Other: Baby with VSD, MFM recommended delivery at 39 wks. Admit Impression : Term, Intrauterine Admit Plan: Admit to Unit; Initiate Labor Induction Protocol Admit Plan- Other: PCN when in active labor for GBS+ status ALLERGIES Medication Allergies: No Medication Allergies: No Known Allergies (06/30/2020) Latex: No Latex Allergies OBSTETRICAL HISTORY EDC: 09/30/2020 00:00 : 2 Para: 1 Term: 1 : 0 SAB: 0 IAB: 0 Ectopic: 0 Livin Cesareans: 0 VBACs: 0 Multiple Births: 0 Gestational Diabetes: No Rh Sensitization: No Incompetent Cervix: No SANDY: No Infertility: No ART Treatment: No Uterine Anomaly: No IUGR: No Hx Previous C/S: No Macrosomia: No Hx Loss/Stillborn: No PIH: No Hx : No Placenta Previa/Abruption: No Depression/PP Depression: No PTL/PROM: No Post Hemorrhage: No Obstetrical History Comments: G1:2018 41.1 8 lbs 4 oz, male vaginal G2: current SEE RECORDS Alcohol: No Marijuana : No Cocaine: No Other Illicit Drugs: No Cigarettes: Never Smoker. [id number] MEDICAL HISTORY Diabetes: No Blood Transfusion: No Pulmonary Disease (Asthma, TB): No Breast Disease: No Hypertension: No Test Borer Surgery: No Heart Disease: No Hosp/Surgery: No Autoimmune Disorder: No Anesthetic Complications: No Kidney Disease: No Abnormal Pap Smear: No Neuro/Epilepsy: No Psychiatric Disorders: No Other Medical Diseases: No Hepatitis/Liver Disease: No Significant Family History: No Varicosities/Phlebitis: No Trauma/Violence : No Thyroid Dysfunction: No INFECTIOUS HISTORY Gonorrhea: No Genital Herpes: No Chlamydia: No Tuberculosis: No Syphilis: No Hepatitis: No HIV/AIDS Exposure: No Rash or Viral Illness: No HPV: No PHYSICAL EXAM General: Normal HEENT: Normal Neurologic: Normal Thyroid: Normal Heart: Normal Lungs: Normal Breast: Normal Back: Normal Abdomen: Normal Genitourinary Exam: Normal Extremities: Normal DTRs: Normal Pelvic Type: Adequate Vital Signs: Reviewed MEMBRANES Membranes: Intact FETUS A Monitoring: External US FHR- Baseline: 130 Variability: Moderate 6-25bpm Accelerations: 15X15 Decelerations: None FHR Category: Category I Admit Comment: at 39.4 wks here for IOL. Pt seeing MFM due to baby having 2 VSD's noted on echo. also complicated by polyhydramnios, GBS+, pt c/o heartpalpatations as well and was placed on heart monitor by Cardiology. Pt wearing it today, denies c/o SOB, chest pain or palpitations. She states she has not had her follow up appointment with them nor has she had any phone calls from them concerning her caridac monitor. Plan to place cervidil for cervical ripening and then start PCN when pt is in active labor. pt does plan an epidural when in active labor. Dr Mc is the attending MD and agrees w/ plan of care. PLANS FOR LABOR AND DELIVERY Labor and Delivery: None Pain Management: Medications; Epidural Feeding Preference: Breast Benefit of Breast Feed Discussed: Yes Circumcision: Yes INFORMED CONSENT Assignment: Alana Mc MD Signature: with User ID: [email or web address] : with User ID: [email or web address]
--- NOTE | 2020-09-27 14:04 | L&D Progress Notes ---
PROGRESS NOTES Datetime Report Generated by CPN: 09/27/2020 14:03 PROGRESS NOTE Plan: Continue Present Management; Induction Vital Signs : Reviewed; Within Normal Limits Comment: Pt resting comfortably w/ eyes closed. Cervidil placed this morning, contractions graphing q6-8min. Plan to leave cervidil in place for now. Position changes encouraged. LAST VAGINAL EXAM-NURSING Nursing Exam Dilitation: 1.5 Nursing Exam Effacement: Thick [facility] Contractions: per Dr. Marquez, patient placed back on monitor for contractions only. MEMBRANES Membranes: Intact FETUS A FHR - Baseline: 130 Monitoring: External US Variability: Moderate 6-25bpm Accelerations: 15X15 Decelerations: None FHR Category: Category I SIGNATURE SIGNATURE: [id number];[id number];[id number] Assignment: Alana Mc MD Signature: with User ID: [email or web address] : with User ID: [email or web address]
[2020-09-27] MEDS ORDERED: OXYTOCIN 10 UNIT/ML VIAL ONE (22:44)
[2020-09-27] MEDS ORDERED: MISOPROSTOL 0.2 MG TABLET ONE (22:44)
[2020-09-27] MEDS ORDERED: OXYTOCIN/0.9 % SODIUM CHLORIDE 30 UNIT/500 ML RTUINJ ONE (22:45)
[2020-09-27] MEDS ORDERED: PENICILLIN G-K 5 MILLION UNIT VIAL ONE (22:45)
[2020-09-27] MEDS ORDERED: LIDOCAINE 1% INJ-PF (10 MG/ML) 30 ML SDV ONE (22:45)
[2020-09-28] MEDS: PENICILLIN G POTASSIUM 2,500,000 UNIT in DEXTROSE 5%-WATER 50 ML IV SCH ×5 (03:22→19:24)
--- NOTE | 2020-09-28 08:28 | L&D Progress Notes ---
PROGRESS NOTES Datetime Report Generated by CPN: 09/28/2020 08:28 PROGRESS NOTE Plan: Continue Present Management; Induction Vital Signs : Reviewed; Within Normal Limits Comment: Cat 1 strip, feeling uc's, desires epidural, POC discussed with pt, anticipate LAST VAGINAL EXAM-NURSING Nursing Exam Dilitation: 3.0 Nursing Exam Effacement: 60 Nursing Exam Station: -2 Nursing Exam Contractions: per Dr. Marquez, patient placed back on monitor for contractions only. MEMBRANES Membranes: Intact FETUS A FHR - Baseline: 130 Monitoring: External US Variability: Moderate 6-25bpm Accelerations: 15X15 Decelerations: None FHR Category: Category I SIGNATURE SIGNATURE: [id number];[id number];[id number] Assignment: Blanca Dior MD Signature: with User ID: [email or web address] : with User ID: [email or web address]
[2020-09-28] MEDS ORDERED: EPHEDRINE SULFATE INJ 50 MG/1 ML AMPULE ONE (09:42)
[2020-09-28] MEDS ORDERED: ROPIVACAINE HCL 0.2% INJ/PF (2 MG/ML) 20 ML SDV ONE (09:43)
[2020-09-28] MEDS ORDERED: FENTANYL/BUPIVACAINE/NS/PF 300 MCG/150 ML RTUINJ EPI ONE (09:43)
[2020-09-28] MEDS ORDERED: DIPH/PERTUSS(ACELL)/TETANUS VAC/PF 0.5 ML SYR (>=10YO) IM PRN (12:53)
[2020-09-28] MEDS ORDERED: MEASLES,MUMPS&RUBELLA VACC/PF 0.5 ML VIAL SUBCUT PRN (12:53)
[2020-09-28] MEDS ORDERED: PROMETHAZINE HCL INJ 25 MG/1 ML VIAL IV PRN (12:53)
[2020-09-28] MEDS ORDERED: MAGNESIUM HYDROXIDE SUSP 30 ML UDCUP PO PRN (12:53)
[2020-09-28] MEDS ORDERED: NA PHOS,M-B/NA PHOS,DI-BA (ADULT) 133 ML ENEMA PR PRN (12:53)
[2020-09-28] MEDS ORDERED: PSEUDOEPHEDRINE HCL 30 MG TABLET PO PRN (12:53)
[2020-09-28] MEDS ORDERED: PROMETHAZINE HCL 25 MG SUPP.RECT PR PRN (12:53)
[2020-09-28] MEDS ORDERED: DIBUCAINE 1% OINTMENT 28 GM TP PRN (12:53)
[2020-09-28] MEDS ORDERED: ACETAMINOPHEN WITH CODEINE #3 TABLET PO PRN (12:53)
[2020-09-28] MEDS ORDERED: ACETAMINOPHEN 650 MG SUPP.RECT PR PRN (12:53)
[2020-09-28] MEDS ORDERED: DIPHENHYDRAMINE HCL 25 MG CAPSULE PO PRN (12:53)
[2020-09-28] MEDS ORDERED: BENZOCAINE/MENTHOL AEROSOL SPRAY 56 ML TOP PRN (12:53)
[2020-09-28] MEDS ORDERED: OXYTOCIN/0.9 % SODIUM CHLORIDE 30 UNIT/500 ML RTUINJ IV PRN (12:53)
[2020-09-28] MEDS ORDERED: PROMETHAZINE HCL 25 MG TABLET PO PRN (12:53)
[2020-09-28] MEDS ORDERED: GLYCERIN/WITCH HAZEL LEAF 1 EACH MED..WIPE TP PRN (12:53)
--- NOTE | 2020-09-28 13:01 | Warning Signs in Babies ---
VOD Warning Signs Datetime Report Generated by [facility]: 09/28/2020 13:01 VOD#608 -Warning Signs in Babies: Needs to be viewed. (06/30/2020 23:02:Idalia Trinidad RN)
[2020-09-28] MEDS ORDERED: ACETAMINOPHEN WITH CODEINE #3 TABLET ONE (13:54)
[2020-09-28] MEDS ORDERED: IBUPROFEN 800 MG TABLET ONE (13:54)
[2020-09-28] MEDS ORDERED: BENZOCAINE/MENTHOL AEROSOL SPRAY 56 ML ONE (13:55)
[2020-09-28] MEDS: IBUPROFEN 800 MG TABLET PO SCH ×2 (13:56→21:27)
[2020-09-28] MEDS: ACETAMINOPHEN WITH CODEINE #3 TABLET PO PRN (13:57)
[2020-09-28] MEDS: FERROUS SULFATE 325 MG TABLET PO SCH (18:01)
[2020-09-28] MEDS: DOCUSATE SODIUM 100 MG CAPSULE PO SCH (18:01)
[2020-09-28] MEDS: FAMOTIDINE 20 MG TABLET PO SCH (21:28)
[2020-09-29] MEDS: IBUPROFEN 800 MG TABLET PO SCH ×3 (06:10→22:12)
[2020-09-29 07:19] LABS: HEMATOCRIT 32.1 % (36.0-47.0); HEMOGLOBIN 10.9 g/dL (12.0-15.5); MEAN CORPUSCULAR HGB CONC 33.8 g/dL (32.0-36.0); MEAN CORPUSCULAR VOLUME 86 fl (80-97); PLATELET COUNT 289 10^3/uL (150-450); RED BLOOD COUNT 3.74 10^6/uL (3.72-5.28); RED CELL DISTRIBUTION WIDTH 14.2 % (11.5-14.0); WHITE BLOOD COUNT 11.8 10^3/uL (4.0-10.5)
[2020-09-29] MEDS: SENNOSIDES/DOCUSATE 8.6-50 MG 1 EACH TABLET PO SCH (09:50)
[2020-09-29] MEDS: PRENATAL VITAMIN W DHA CAPSULE PO SCH (09:50)
[2020-09-29] MEDS: FERROUS SULFATE 325 MG TABLET PO SCH ×2 (09:51→17:33)
[2020-09-29] MEDS: ACETAMINOPHEN WITH CODEINE #3 TABLET PO PRN (09:51)
[2020-09-29] MEDS: DOCUSATE SODIUM 100 MG CAPSULE PO SCH ×2 (09:51→17:32)
[2020-09-29] MEDS: FAMOTIDINE 20 MG TABLET PO SCH ×2 (09:51→22:18)
--- NOTE | 2020-09-29 13:05 | PDOC PROGRESS REPORT ---
Subjective-OB Progress Note for:: 09/29/20 Subjective: Pt doing well, no concerns. She is ambulatory, reports reg diet, bleeding normal and is bonding w baby. Physical Exam (OB) Vital Signs: Temp Pulse Resp BP Pulse Ox 98.2 F 111 H 17 134/77 H 100 09/29/20 10:00 09/29/20 08:01 09/29/20 08:01 09/29/20 08:01 09/29/20 08:01 Intake & Output 09/28/20 09/29/20 09/30/20 06:59 06:59 06:59 Weight 102.058 kg - PIH/Pre-Eclampsia Clonus: Negative Headache: Absent Epigastric Pain: No Visual Changes: No - Maternal Morbidity 59. Maternal Morbidity (serious complications experinced by the mother associated with labor and delivery: None of the above - Lochia Lochia Amount: Scant < 10 ml Lochia Color: Rubra/Red - Abdomen Description: Soft Hernia Present: No Fundal Description: Firm, Midline Fundal Height: u/u - u/2 Objective-Diagnostic Laboratory: 09/29/20 06:51 09/29/20 06:51 WBC 11.8 H RBC 3.74 Hgb 10.9 L Hct 32.1 L MCV 86 MCH 29.0 MCHC 33.8 RDW 14.2 H Plt Count 289 Assessment and Plan(PN) - Assessment and Plan (1) Encounter for induction of labor Is this a current diagnosis for this admission?: Yes (2) Vaginal delivery Is this a current diagnosis for this admission?: Yes - Time Spent with Patient Time with patient: Less than 15 minutes Medications reviewed and adjusted accordingly: Yes - Disposition Anticipated Discharge Disposition: Home, Self Care Anticipated Discharge Timeframe: within 24 hours
[2020-09-30] MEDS: IBUPROFEN 800 MG TABLET PO SCH ×2 (05:43→15:03)
[2020-09-30 08:40] VITALS: BP 133/81
[2020-09-30] MEDS: DOCUSATE SODIUM 100 MG CAPSULE PO SCH (11:05)
[2020-09-30] MEDS: FERROUS SULFATE 325 MG TABLET PO SCH (11:05)
[2020-09-30] MEDS: FAMOTIDINE 20 MG TABLET PO SCH (11:05)
[2020-09-30] MEDS: PRENATAL VITAMIN W DHA CAPSULE PO SCH (11:05)
[2020-09-30] MEDS: SENNOSIDES/DOCUSATE 8.6-50 MG 1 EACH TABLET PO SCH (11:05)
--- NOTE | 2020-09-30 14:55 | PDOC DISCHARGE SUMMARY ---
Impression - Admit/DC Date/PCP Admission Date/Primary Care Provider: 09/27/20 06:32 TITUS REYES MD Discharge Date: 09/30/20 - Discharge Diagnosis (1) Ventricular septal defect (VSD) of fetus in [place] , antepartum Is this a current diagnosis for this admission?: Yes (2) Encounter for induction of labor Is this a current diagnosis for this admission?: Yes (3) GBS (group B Streptococcus carrier), +RV culture, currently Is this a current diagnosis for this admission?: Yes (4) Vaginal delivery Is this a current diagnosis for this admission?: Yes - Additional Information Discharge Diet: Regular Discharge Activity: Balance Activity w/Rest, Pelvic Rest Referrals: TITUS REYES MD [Primary Care Provider] - Prescriptions: Ibuprofen [Motrin 800 mg Tablet] 800 mg PO Q8HP PRN #60 tablet PRN Reason: Home Medications: Vit/Iron Fum/Folic AC [ Tablet] 1 tab PO DAILY 05/13/18 Ibuprofen [Motrin 800 mg Tablet] 800 mg PO Q8HP PRN #60 tablet 09/30/20 Hospital Course 59. Maternal Morbidity (serious complications experinced by the mother associated with labor and delivery: None of the above Results Laboratory Results: WBC 11.8 10^3/uL (4.0-10.5) H 09/29/20 06:51 RBC 3.74 10^6/uL (3.72-5.28) 09/29/20 06:51 Hgb 10.9 g/dL (12.0-15.5) L 09/29/20 06:51 Hct 32.1 % (36.0-47.0) L 09/29/20 06:51 MCV 86 fl (80-97) 09/29/20 06:51 MCH 29.0 pg (27.0-33.4) 09/29/20 06:51 MCHC 33.8 g/dL (32.0-36.0) 09/29/20 06:51 RDW 14.2 % (11.5-14.0) H 09/29/20 06:51 Plt Count 289 10^3/uL (150-450) 09/29/20 06:51 Urine Color YELLOW 09/27/20 07:00 Urine Appearance CLEAR 09/27/20 07:00 Urine pH 7.0 (5.0-9.0) 09/27/20 07:00 Ur Specific Harriet 1.008 09/27/20 07:00 Urine Protein NEGATIVE mg/dL (NEGATIVE) 09/27/20 07:00 Urine Glucose (UA) NEGATIVE mg/dL (NEGATIVE) 09/27/20 07:00 Urine Ketones NEGATIVE mg/dL (NEGATIVE) 09/27/20 07:00 Urine Blood SMALL (NEGATIVE) H 09/27/20 07:00 Urine Nitrite NEGATIVE (NEGATIVE) 09/27/20 07:00 Urine Bilirubin NEGATIVE (NEGATIVE) 09/27/20 07:00 Urine Urobilinogen NEGATIVE mg/dL (<2.0) 09/27/20 07:00 Ur Leukocyte Esterase NEGATIVE (NEGATIVE) 09/27/20 07:00 Urine Ascorbic Acid NEGATIVE (NEGATIVE) 09/27/20 07:00 Urine Opiates Screen NEGATIVE 09/27/20 07:00 Urine Methadone Screen NEGATIVE 09/27/20 07:00 Ur Barbiturates Screen NEGATIVE 09/27/20 07:00 Ur Phencyclidine Scrn NEGATIVE 09/27/20 07:00 Ur Amphetamines Screen NEGATIVE 09/27/20 07:00 U Benzodiazepines Scrn NEGATIVE 09/27/20 07:00 Urine Cocaine Screen NEGATIVE 09/27/20 07:00 U Marijuana (THC) Screen NEGATIVE 09/27/20 07:00 RPR NONREACTIVE (NONREACTIVE) 09/27/20 07:04 Blood Type O POSITIVE 09/27/20 07:04 Antibody Screen NEGATIVE 09/27/20 07:04 Plan Plan of Treatment: follow up in 4 weeks at [facility] for post check
--- NOTE | 2020-10-03 14:57 | Delivery Summary ---
Del Sum A-C Datetime Report Generated by CPN: 10/03/2020 14:57 DELIVERY PERSONNEL DELIVERY PERSONNEL: [id number] Delivery Doctor:: Jessica Flanagan CNM Labor and Delivery Nurse:: Idalia Trinidad RN Nursery Nurse:: Meghann Garcia RN Nursery Nurse:: Izabella Leon RN Post Closing Specialist/MANAGER OF WAREHOUSE: Rosenda Rajan, ST MATERNAL INFORMATION Delivery Anesthesia: Epidural Medications After Delivery: Pitocin 30 Units in 500ml NS/D5W Delivery QBL: 25 Maternal Complications: None Provider Comments: viable male from OA to TELLO over intact perineum, rt perineal laceration, placed on mothers abd and cord clamped and cut by FOB, baby screaming and moving, cord blood obtained, spont delivery of grossly normal intact placenta, 3 VC, laceration repaired with 2-0 chromic without difficulty using epidural. Mom holding baby, FFFM, IV Pitocin infusing, baby and mom in recovery in stable condition, nursery in attendance for delivery (Annotations: Data stored by N on behalf of user) LABOR SUMMARY EDC: 09/30/2020 00:00 No. Babies in Womb: 1 Attempted: No Labor Anesthesia: Epidural LABOR INFORMATION Reason for Induction: Anomalies Onset of Labor: 09/28/2020 07:37 Complete Dilatation: 09/28/2020 12:05 Cervical Ripening Agents: Cervidil Oxytocin: Induction Group B Beta Strep: positive Antibiotics # of Doses: 3 Antibiotics Time of Last Dose: 09/28/2020 07:17 Name of Antibiotic Given: Penicillin Steroids Given: None Reason Steroids Not Administered: Not Applicable MEMBRANES Membranes Rupture Method: Artificial Rupture of Membranes: 09/28/2020 07:45 Length of Rupture (hr): 4.75 Amniotic Fluid Color: Clear Amniotic Fluid Amount: Moderate Amniotic Fluid Odor: None STAGES OF LABOR Stage 1 hr: 4 Stage 1 min: 28 Stage 2 hr: 0 Stage 2 min: 25 Stage 3 hr: 0 Stage 3 min: 5 Total Time in Labor hr: 4 Total Time in Labor min: 58 VAGINAL DELIVERY Episiotomy: None Laceration #1: Perineal Laceration Extension #1: First Degree Laceration Repair: Yes Laceration Repair Note: 2-0 chroomic rt perineal lac Sponge Count Correct: N/A Sharps Count Correct: N/A CSECTION DELIVERY Primary Indication: N/A Secondary Indication: N/A CSection Incidence: N/A Labor: N/A Elective: N/A CSection Incision: N/A BABY A INFORMATION Infant Delivery Date/Time: 09/28/2020 12:30 Method of Delivery: Vaginal Nurse Controlled Delivery: No Born in Route : No : N/A Forceps: N/A Vacuum Extraction: N/A Shoulder Dystocia : No PRESENTATION/POSITION BABY A Presentation: Cephalic Cephalic Presentation: Vertex Vertex Position: Left Occipital Anterior Breech Presentation: N/A PLACENTA INFORMATION BABY A Placenta Delivery Time : 09/28/2020 12:35 Placenta Method of Delivery: Spontaneous Placenta Status: Delivered SCORES BABY A Heart Rate 1 min: >100 bpm Resp Effort 1 min: Good Cry Reflex Irritability 1 min: Cough or Sneeze or Pulls Away Muscle Tone 1 min: Active Motion Color 1 min: Body [place], Extremities Blue Resuscitation Effort 1 min: Tactile Stimulation SCORE 1 MIN: 9 Heart Rate 5 min: >100 bpm Resp Effort 5 min: Good Cry Reflex Irritability 5 min: Cough or Sneeze or Pulls Away Muscle Tone 5 min: Active Motion Color 5 min: Body [place], Extremities Blue Resuscitation Effort 5 min: Tactile Stimulation SCORE 5 MIN: 9 INFORMATION BABY A Gestational Age at Delivery: 39.5 Gestational Status: Full Term- 39- 40.6 Weeks Infant Outcome : Liveborn Condition : Stable Sex: Male IDENTIFICATION BABY A Infant Verification Date/Time: 09/28/2020 12:43 ID Band Number: [id number] Mother's Name Verified: Yes Infant RN Verifying Infant: AdamAMY Additional Verifying Personnel: SSonia, ST WEIGHT/LENGTH BABY A Infant Birthweight (gm): 3829 Weight (lb): 8 Infant Weight (oz): 7 Infant Length (in): 22.00 Length (cm): 55.88 CORD INFORMATION BABY A No. Cord Vessels: 3 Nuchal Cord : N/A Cord Blood Taken: Yes-For Eval (Mom's Blood Type - or O+) Infant Suction: None ASSESSMENT BABY A Skin to Skin: Yes BABY B INFORMATION : N/A
== END 2020-09-30 18:00 | disposition home or self-care (01) | DRG 807 ==
LOC: LR 06:32 → 2S 09-28 15:07
PROVIDERS: ADMIT Obstetrics & Gynecology; ATTEND Obstetrics & Gynecology
PROC: 10E0XZZ Delivery of Products of Conception, External Approach (ICD-10-PCS; principal; 2020-09-28)
PROC: 0HQ9XZZ Repair Perineum Skin, External Approach (ICD-10-PCS; 2020-09-28)
PROC: 10907ZC Drainage of Amniotic Fluid, Therapeutic from Products of Conception, Via Natural or Artificial Opening (ICD-10-PCS; 2020-09-28)
PROC: 3E033VJ Introduction of Other Hormone into Peripheral Vein, Percutaneous Approach (ICD-10-PCS; 2020-09-28)
DX: O40.3XX0 Polyhydramnios, third trimester, not applicable or unspecified (principal); Z37.0 Single live birth; Z20.828 Contact with and (suspected) exposure to other viral communicable diseases; O99.824 Streptococcus B carrier state complicating childbirth; O36.8330 Maternal care for abnormalities of the fetal heart rate or rhythm, third trimester, not applicable or unspecified; O70.0 First degree perineal laceration during delivery; Z3A.39 39 weeks gestation of pregnancy
CPT/HCPCS: 1967; 36415; 80307; 81005; 85027; 86592; 86850; 86900; 86901; 94760; J2540; J2590; J2795; J3010; J3490; J7060